=== PATIENT | male | born 1990 | race African-American/Black ===

== ENCOUNTER 2021-01-16 18:27 | Emergency (ER) | payer OTHER ==
[~2021-01-16] VITALS: Ht 162.6 cm; Wt 69.1 kg
[2021-01-16 19:30] VITALS: TEMP 97.7
[2021-01-16] MEDS ORDERED: CEPHALEXIN500 M1 PO (19:49)
[2021-01-16 20:04] VITALS: BP 125/80; PULSE 60
== END 2021-01-16 20:04 | disposition home or self-care (01) ==
LOC: COL.ER 18:27
DX: L08.9 Local infection of the skin and subcutaneous tissue, unspecified (principal); F17.200 Nicotine dependence, unspecified, uncomplicated